=== PATIENT | male | born 1960 | race African-American/Black ===

== ENCOUNTER 2019-08-22 09:49 | Emergency (ER) | payer SELFPAY | END 2019-08-22 11:15 | disposition home or self-care (01) | LOC: BURERS 09:49 | DX: M54.5 Low back pain (principal); R03.0 Elevated blood-pressure reading, without diagnosis of hypertension; F17.210 Nicotine dependence, cigarettes, uncomplicated | CPT/HCPCS: 99283 ==

== ENCOUNTER 2021-06-12 09:10 | Emergency (ER) | payer SELFPAY ==
[2021-06-12 10:01] LABS: Band 1 % (5-11); Eosinophils 6 % (0-10); Lymphocytes 33 % (21-51); MDiff Complete? YES; Mean Corpuscular HGB CONC 33.8 g/dL (32.0-36.0); Mean Corpuscular Hemoglobin 30.5 pg (27.0-31.0); Mean Corpuscular Volume 90.2 fL (78.0-98.0); Mean Platelet Volume 6.8 fL (7.4-10.4); Monocytes 7 % (0-10); Neutrophil 51 % (42-75); Platelet Count 232 thou/uL (130-400); RBC Distribution Width 13.1 % (11.5-14.5); Reactive Lymphocytes 1 % (0-10); Red Blood Cell (RBC) Count 4.59 mill/uL (4.70-6.10); White Blood Cell (WBC) Count 5.3 thou/uL (4.8-10.8)
[2021-06-12 10:12] LABS: ALT (SGPT) 18 U/L (8-55); AST (SGOT) 17 U/L (5-34); Albumin 4.1 g/dL (3.5-5.0); Alkaline Phosphatase 49 U/L (40-110); Anion Gap 12 mmol/L (10-20); BUN (Urea Nitrogen) 14 mg/dL (8.4-25.7); Bilirubin, Total 0.5 mg/dL (0.2-1.2); Calc. Creatinine Clearance 0 mL/min (70-130); Carbon Dioxide 25 mmol/L (22-29); Chloride 108 mmol/L (98-107); Globulin 3.1 g/dL (2.4-3.5); Glucose 109 mg/dL (70-105); Protein, Total 7.2 g/dL (6.0-8.3); Sodium 141 mmol/L (136-145)
[2021-06-12] MEDS ORDERED: Aspirin Chewable 81 MG TAB ONE (10:32)
== END 2021-06-12 16:55 | disposition short-term general hospital (02) ==
LOC: BURERS 09:10
DX: R42 Dizziness and giddiness (principal); F17.210 Nicotine dependence, cigarettes, uncomplicated
CPT/HCPCS: 36415; 70450; 71045; 80053; 83880; 84484; 85025; 93005

== ENCOUNTER 2022-03-17 09:25 | Emergency (ER) | payer SELFPAY | END 2022-03-17 09:42 | disposition home or self-care (01) | LOC: BURERS 09:25 | DX: Z76.0 Encounter for issue of repeat prescription (principal); G89.29 Other chronic pain; M54.50 Low back pain, unspecified; I10 Essential (primary) hypertension; J45.909 Unspecified asthma, uncomplicated; E78.5 Hyperlipidemia, unspecified; E78.00 Pure hypercholesterolemia, unspecified; F17.210 Nicotine dependence, cigarettes, uncomplicated; Z79.51 Long term (current) use of inhaled steroids; Z79.899 Other long term (current) drug therapy | CPT/HCPCS: 99283 ==

== ENCOUNTER 2022-07-30 16:39 | Emergency (ER) | payer SELFPAY ==
[2022-07-30] MEDS ORDERED: cefTRIAXone\\ROCEPHIN 1 GM VIAL ONE (17:03)
[2022-07-30] MEDS ORDERED: traMADol HCl 50 MG TAB ONE (17:03)
[2022-07-30] MEDS ORDERED: Dexamethasone 4 MG TAB ONE (17:03)
[2022-07-30] MEDS ORDERED: Lidocaine 2% PF 5 ML VIAL ONE (17:04)
== END 2022-07-30 17:14 | disposition home or self-care (01) ==
LOC: BURERS 16:39
DX: J01.90 Acute sinusitis, unspecified (principal); F17.210 Nicotine dependence, cigarettes, uncomplicated; E78.5 Hyperlipidemia, unspecified; I10 Essential (primary) hypertension; J45.909 Unspecified asthma, uncomplicated
CPT/HCPCS: 96372; 99283; J0696; J2001; J8540